=== PATIENT | female | born 1990 | race Caucasian/White ===

== ENCOUNTER 2018-07-05 07:56 | Emergency (ER) | payer OTHER ==
[~2018-07-05] VITALS: Ht 167.6 cm; Wt 158.3 kg
[~2018-07-05 07:56] MED LIST: ATIVAN1 MG; AURALGAN EAR DR14 ML OTIC; DEPO-PROVERA IM; IBUPROFEN 800800 MG PO; LAMICTAL; SONATA5 M1; ZPAK PO
[2018-07-05 08:38] LABS: ABSOLUTE BASOPHILS 0.1 thou/uL (0.0-0.2); ABSOLUTE EOSINOPHILS 0.1 thou/uL (0.0-0.7); ABSOLUTE LYMPHOCYTES 1.1 thou/uL (0.8-5.3); ABSOLUTE MONOCYTES 0.7 thou/uL (0.0-1.2); BASOPHILS 0.8 %; HEMATOCRIT 42.5 % (37.0-47.0); HEMOGLOBIN 13.7 gm/dL (12.0-15.0); LYMPHOCYTES 15.7 %; MCH 26.2 pg (26.0-34.0); MCHC 32.1 g/dL (28.0-37.0); MCV 81.6 fL (80.0-100.0); MONOCYTES 10.5 %; MPV 10.8 fl. (7.2-11.1); NUCLEATED RBCS 0 /100WBC; PLATELET COUNT* 217 thou/uL (150-400); RBC 5.22 mil/uL (4.20-5.00); RDW-CV 13.6 % (10.5-14.5)
[2018-07-05 08:42] LABS: CALCIUM 8.8 mg/dL (8.5-10.1); CREATININE 0.8 mg/dL (0.6-1.3)
[2018-07-05 08:47] LABS: ALBUMIN 3.3 g/dL (3.4-5.0); TOTAL BILIRUBIN 0.8 mg/dL (<0.1-1.0); TOTAL PROTEIN 7.7 g/dL (6.4-8.2)
[2018-07-05 08:56] LABS: POTASSIUM 2.9 mmol/L (3.5-5.1)
[2018-07-05] MEDS ORDERED: ULTRAM 50MG TAB50 MG PO (09:35)
[2018-07-05] MEDS ORDERED: ZOFRAN ODT4 MG SUBLING (09:35)
[2018-07-05 09:39] LABS: URINE BLOOD 1+ (Negative); URINE CLARITY CLEAR; URINE COLOR YELLOW; URINE GLUCOSE-RANDOM NEGATIVE (Negative); URINE LEUKOCYTES-REFLEX NEGATIVE (Negative); URINE NITRITE-REFLEX NEGATIVE (Negative); URINE PROTEIN TRACE (Negative); URINE SPECIFIC GRAVITY 1.015 (1.005-1.030)
[2018-07-05 09:41] LABS: ACETEST (KETONE CONFIRMATORY) Large (Negative); ICTOTEST (BILI CONFIRMATORY) Negative (Negative); URINE BILIRUBIN 2+ (Negative); URINE KETONES 3+ (Negative)
[2018-07-05] MEDS ORDERED: TRAZODONE HCL50 MG PO (09:43)
[2018-07-05] MEDS ORDERED: DOXYCYCLINE 10100 M1 PO (09:46)
[2018-07-05 09:51] LABS: BACTERIA-REFLEX 1-9 Few /HPF (None Seen); CASTS None Seen /LPF (None Seen); CRYSTALS None Seen /LPF (None Seen); MUCUS >6 Heavy strn/LPF (None Seen); SQUAMOUS >10 Many /LPF (0-3); URINE RBC 3-10 Few /HPF (0-2); URINE WBC-REFLEX 0-5 Rare /HPF (0-5)
[2018-07-05 09:54] VITALS: BP 141/77
== END 2018-07-05 09:56 | disposition home or self-care (01) ==
LOC: M.ERS 07:56
PROVIDERS: Family Medicine
DX: R10.30 Lower abdominal pain, unspecified (principal); E87.6 Hypokalemia; R11.2 Nausea with vomiting, unspecified; F31.9 Bipolar disorder, unspecified; Z88.8 Allergy status to other drugs, medicaments and biological substances

== ENCOUNTER 2019-06-14 01:55 | Emergency (ER) | payer OTHER ==
[~2019-06-14 01:55] MED LIST changes: +DOXYCYCLINE 10100 M1 PO; +TRAZODONE HCL50 MG PO; +ULTRAM 50MG TAB50 MG PO; +ZOFRAN ODT4 MG SUBLING
[2019-06-14 02:54] VITALS: BP 000/00
== END 2019-06-14 02:57 ==
LOC: M.ERS 01:55
DX: Z02.89 Encounter for other administrative examinations (principal)

== ENCOUNTER 2020-02-24 22:36 | Emergency (ER) | payer OTHER ==
[~2020-02-24] VITALS: Ht 167.6 cm; Wt 105.2 kg
[2020-02-24 23:02] LABS: URINE BILIRUBIN NEGATIVE (Negative); URINE BLOOD NEGATIVE (Negative); URINE CLARITY CLEAR; URINE COLOR STRAW; URINE GLUCOSE-RANDOM NEGATIVE (Negative); URINE KETONES NEGATIVE (Negative); URINE LEUKOCYTES-REFLEX NEGATIVE (Negative); URINE NITRITE-REFLEX NEGATIVE (Negative); URINE PROTEIN NEGATIVE (Negative); URINE SPECIFIC GRAVITY <= 1.005 (1.005-1.030); URINE UROBILINOGEN 0.2 E.U./dl (0.2-1.0)
[2020-02-24] MEDS ORDERED: PRILOSEC10 MG PO (23:02)
[2020-02-24 23:09] LABS: AMP/METHAMP Negative (Negative); BARBITURATES Negative (Negative); BENZODIAZEPINES Negative (Negative); COCAINE Negative (Negative); METHADONE Negative (Negative); OPIATES Negative (Negative); PCP Negative (Negative); THC Negative (Negative)
[2020-02-24 23:10] LABS: ABSOLUTE BASOPHILS 0.1 thou/uL (0.0-0.2); ABSOLUTE LYMPHOCYTES 2.8 thou/uL (0.8-5.3); ABSOLUTE MONOCYTES 0.7 thou/uL (0.0-1.2); ABSOLUTE NEUTROPHILS 2.7 thou/uL (1.6-8.1); BASOPHILS 1.1 %; EOSINOPHILS 0.3 %; HEMATOCRIT 41.8 % (37.0-47.0); HEMOGLOBIN 14.1 gm/dL (12.0-15.0); LYMPHOCYTES 44.5 %; MCH 28.1 pg (26.0-34.0); MCHC 33.8 g/dL (28.0-37.0); MCV 83.3 fL (80.0-100.0); MONOCYTES 11.4 %; NUCLEATED RBCS 0 /100WBC; PLATELET COUNT* 302 thou/uL (150-400); POLYS 42.7 %; RBC 5.02 mil/uL (4.20-5.00); RDW-CV 12.5 % (10.5-14.5); WBC 6.3 thou/uL (4.0-11.0)
[2020-02-24 23:14] LABS: CALCIUM 8.4 mg/dL (8.5-10.1); CREATININE 0.7 mg/dL (0.6-1.3); POTASSIUM 3.4 mmol/L (3.5-5.1)
[2020-02-24 23:19] LABS: ALBUMIN 3.8 g/dL (3.4-5.0); TOTAL BILIRUBIN 0.3 mg/dL (<0.1-1.0); TOTAL PROTEIN 7.7 g/dL (6.4-8.2)
[2020-02-24 23:33] LABS: ACETAMINOPHEN < 2 ug/mL (10-30); ALCOHOL 235 mg/dL (<10); SALICYLATE < 2.8 mg/dL (2.8-20.0)
[2020-02-25 02:58] VITALS: BP 119/77
== END 2020-02-25 02:58 | disposition home or self-care (01) ==
LOC: M.ERS 22:36
PROVIDERS: Family Medicine
DX: F31.9 Bipolar disorder, unspecified (principal); F10.129 Alcohol abuse with intoxication, unspecified; Y90.7 Blood alcohol level of 200-239 mg/100 ml; K58.9 Irritable bowel syndrome, unspecified; Z88.8 Allergy status to other drugs, medicaments and biological substances; Z79.899 Other long term (current) drug therapy